=== PATIENT | male | born 1945 | race Caucasian/White ===

== ENCOUNTER 2016-07-08 23:04 | Emergency (ER) | payer MEDICARE, BC, OTHER ==
[~2016-07-08] VITALS: Ht 172.7 cm; Wt 91.4 kg
[~2016-07-08 23:04] MED LIST: ASPIRIN 32325 MG/TAB PO; ASPIRIN 81M81 MG/TA2 PO; BETAPACE 80MG80 MG PO; BYSTOLIC5 MG PO; CARDIZEM CD 18180 MG PO; CARTIA XT180 MG PO; COUMADIN 3MG3 MG/TAB PO; COUMADIN 5MG5 MG/TAB PO; COZAAR 50MG50 MG/TAB PO; COZAAR100 MG PO; COZAAR50 MG PO; DEMADEX 20MG20 M1 PO; DILTIAZEM180 MG PO; HCTZ 25MG TAB25 MG PO; HCTZ 25MG25 MG PO; HYDRODIURIL50 MG PO; LASIX 20MG TABL20 MG PO; LIPITOR 10MG10 MG PO; LIPITOR20 MG PO; LOPRESSOR 225 MG/TAB PO; METOPROLOL25 MG PO; NITRO-DUR0.4 MG/PAT TD; NITROSTAT0.4 MG/TAB SL; NORVASC 10MG10 MG PO; PLAVIX 75MG TAB75 MG PO
[2016-07-08 23:10] VITALS: TEMP 98.7
[2016-07-08] MEDS ORDERED: COZAAR 25MG25 MG/TAB PO (23:14)
[2016-07-09] MEDS ORDERED: PERCOCET 325 MG1 TA2 PO (00:36)
[2016-07-09] MEDS ORDERED: ULTRAM 50MG TAB50 MG PO (00:36)
[2016-07-09 00:54] VITALS: BP 104/67; PULSE 68
== END 2016-07-09 01:02 | disposition home or self-care (01) ==
LOC: COL.ER 23:04
DX: M79.675 Pain in left toe(s) (principal); M79.89 Other specified soft tissue disorders; W22.8XXA Striking against or struck by other objects, initial encounter; Y92.009 Unspecified place in unspecified non-institutional (private) residence as the place of occurrence of the external cause; E11.9 Type 2 diabetes mellitus without complications; Z79.01 Long term (current) use of anticoagulants; I48.91 Unspecified atrial fibrillation

== ENCOUNTER 2020-09-08 17:50 | Emergency (ER) | payer MEDICARE, OTHER, BC ==
[~2020-09-08] VITALS: Ht 175.3 cm; Wt 87.7 kg
[~2020-09-08 17:50] MED LIST changes: +COZAAR 25MG25 MG/TAB PO; +KLOR-CON SPRIN10 MEQ PO; +PERCOCET 325 MG1 TA2 PO; +ULTRAM 50MG TAB50 MG PO; +ZAROXOLYN5 MG PO
[2020-09-08 18:02] VITALS: TEMP 96.9
[2020-09-08 19:10] VITALS: BP 105/63; PULSE 67
== END 2020-09-08 19:10 | disposition home or self-care (01) ==
LOC: COL.ER 17:50
DX: T82.898A Other specified complication of vascular prosthetic devices, implants and grafts, initial encounter (principal); I25.10 Atherosclerotic heart disease of native coronary artery without angina pectoris; Z88.8 Allergy status to other drugs, medicaments and biological substances; Z79.82 Long term (current) use of aspirin

== ENCOUNTER 2020-11-22 19:53 | Emergency (ER) | payer MEDICARE, OTHER, BC ==
[~2020-11-22] VITALS: Ht 175.3 cm; Wt 81.8 kg
[2020-11-22 20:01] VITALS: TEMP 97
[2020-11-22] MEDS ORDERED: ZYVOX 600MG600 MG PO (20:27)
[2020-11-22] MEDS ORDERED: CORDARONE200 MG/TAB PO (20:27)
[2020-11-22] MEDS ORDERED: VANTIN 200200 MG/TAB PO (20:28)
[2020-11-22] MEDS ORDERED: BUMEX2 MG PO (20:28)
[2020-11-22] MEDS ORDERED: PLAVIX 75MG TAB75 MG PO (20:28)
[2020-11-22] MEDS ORDERED: IMDUR 30MG30 MG/TAB PO (20:29)
[2020-11-22] MEDS ORDERED: LOPRESSOR 225 MG/TAB PO ×2 (20:29→20:30)
[2020-11-22] MEDS ORDERED: KLOR-CON SPRIN10 MEQ PO (20:30)
[2020-11-22] MEDS ORDERED: INSPRA25 MG PO (20:30)
[2020-11-22] MEDS ORDERED: LIPITOR20 MG PO (20:31)
[2020-11-22] MEDS ORDERED: ELIQUIS 5MG PO (20:31)
[2020-11-22] MEDS ORDERED: ZYLOPRIM 100MG100 MG PO (20:31)
[2020-11-22 21:57] VITALS: BP 131/71; PULSE 79
== END 2020-11-22 21:57 | disposition home or self-care (01) ==
LOC: COL.ER 19:53
DX: Z45.2 Encounter for adjustment and management of vascular access device (principal); Z79.02 Long term (current) use of antithrombotics/antiplatelets; I50.9 Heart failure, unspecified; M10.9 Gout, unspecified; I48.91 Unspecified atrial fibrillation; I25.10 Atherosclerotic heart disease of native coronary artery without angina pectoris; E78.5 Hyperlipidemia, unspecified; E11.9 Type 2 diabetes mellitus without complications; Z95.9 Presence of cardiac and vascular implant and graft, unspecified; Z87.891 Personal history of nicotine dependence; Z79.01 Long term (current) use of anticoagulants; Z79.899 Other long term (current) drug therapy

== ENCOUNTER 2020-11-25 08:49 | Observation (INO) | payer MEDICARE, OTHER, BC ==
[~2020-11-25] VITALS: Ht 175.3 cm; Wt 81.8 kg
[~2020-11-25 08:49] MED LIST changes: +BUMEX2 MG PO; +CORDARONE200 MG/TAB PO; +ELIQUIS 5MG PO; +IMDUR 30MG30 MG/TAB PO; +INSPRA25 MG PO; +VANTIN 200200 MG/TAB PO; +ZYLOPRIM 100MG100 MG PO; +ZYVOX 600MG600 MG PO
[2020-11-25 10:57] LABS: HEMOGLOBIN 11.5 g/dl (13.5-18.0); MEAN CELL VOLUME 87 fl (80.0-100.0); MEAN CORPUSCULAR HEMOGLOBIN 28 pg (27.0-31.0); MEAN CORPUSCULAR HGB CONC 32 g/dl (33.0-37.0); MEAN PLATELET VOLUME 10.3 fl (7.4-10.4); PLATELET COUNT 134 K/mm3 (130-400); RED BLOOD COUNT 4.12 M/mm3 (4.20-5.60); REDCELL DISTRIBUTION WIDTH-CV 16.9 % (11.5-14.5)
[2020-11-25 10:59] LABS: HEMATOCRIT 35.8 % (42.0-52.0)
[2020-11-25 11:05] LABS: ALBUMIN 3.4 gm/dL (3.5-5.0); BILIRUBIN,TOTAL 1.7 mg/dL (0.0-1.0); CALCIUM 8.8 mg/dL (8.4-10.2); CREATININE, serum 1.97 (0.66-1.25); POTASSIUM 4.7 mmol/L (3.4-5.0); TOTAL PROTEIN 6.4 gm/dL (6.4-8.2)
[2020-11-25 11:24] LABS: TROPONIN-I 0.061 ng/mL (0.000-0.035)
[2020-11-25 11:29] LABS: LYMPHOCYTE 3 % (20.0-51.0); NEUTROPHILS 95 % (42.0-75.2); OVALOCYTES 1+; PLATELET ESTIMATE NORMAL (NORMAL)
[2020-11-25 11:33] LABS: HYPOCHROMIA 1+; POIKILOCYTOSIS 1+
[2020-11-25] MEDS ORDERED: MILRINONE (12:04)
--- NOTE | 2020-11-25 13:00 | NUR ---
Patient transferred up from the ED for CHF and injury from a fall. Upon initial assessment of the patient, lungs were clear to auscultation, skin was cool to the touch, pedal and radial pulses were +1 bilaterally, normal S1 and S2 sounds present, blood pressures soft 90's/ 50's, patient A&O. Patient has 2 large skin tears on his left elbow dressed with steri strips, ABD pads, gauze, and coban. Skin tears located on left foot and right dos santos are dressed with gauze. Patient has a stage 2 pressure ulcer located on sacral region and left buttock, dressed with mepilex. Patient C/O chronic pain in his lower back, states that he does not need any medication for it at this time. Milrinone running via home pump at 3.4 ml per/hour through PICC line. PICC line is located in RUU. Both lumens flush and have blood return. Dressing is partially soiled with dried blood. Patient is experiencing some diarrhea, GI panel collected. Patient denies any further pain, discomfort, or further needs at this time. Will continue to monitor. Call light in reach. Fall precautions in place.
[2020-11-25 14:28] VITALS: BP 94/60; PULSE 71; TEMP 96.4
[2020-11-25 15:20] VITALS: BP 125/78; PULSE 87; TEMP 97.7
[2020-11-25 17:44] VITALS: BP 98/55; PULSE 106; TEMP 97.4
[2020-11-25 19:20] VITALS: BP 95/50; PULSE 60; TEMP 97.5
[2020-11-25 21:07] LABS: INR 4.3 (0.8-3.0)
[2020-11-25 21:14] LABS: PROTHROMBIN TIME 48.1 SECONDS (9.7-12.8)
[2020-11-25 23:30] VITALS: BP 94/49; PULSE 66; TEMP 97.4
[2020-11-26] VITALS (7 sets, daily range): BP systolic 89–106; BP diastolic 44–60; PULSE 53–65; TEMP 96.8–98.4
[2020-11-26 08:09] LABS: CALCIUM 8.3 mg/dL (8.4-10.2); CREATININE, serum 1.99 (0.66-1.25)
[2020-11-26 08:15] LABS: INR 4.6 (0.8-3.0)
[2020-11-26 08:37] LABS: BASO # 0.1 (0.0-0.2); BASO % 0.6 % (0.0-2.0); EOS # 0.2 (0.0-0.7); EOS % 2.3 % (0-4.0); GRAN % 87.9 % (42.2-75.2); LYMPH # 0.2 (1.2-3.4); LYMPH % 2.8 % (20.0-51.0); MEAN CELL VOLUME 87 fl (80.0-100.0); MEAN CORPUSCULAR HGB CONC 32 g/dl (33.0-37.0); MEAN PLATELET VOLUME 11.6 fl (7.4-10.4); MONO # 0.5 (0.1-0.6); MONO % 5.9 % (1.7-9.3); PLATELET COUNT 111 K/mm3 (130-400); RED BLOOD COUNT 3.51 M/mm3 (4.20-5.60); REDCELL DISTRIBUTION WIDTH-CV 17.2 % (11.5-14.5)
[2020-11-26 08:38] LABS: HEMATOCRIT 30.6 % (42.0-52.0); HEMOGLOBIN 9.9 g/dl (13.5-18.0); MEAN CORPUSCULAR HEMOGLOBIN 28 pg (27.0-31.0)
--- NOTE | 2020-11-26 08:40 | NUR ---
Lab called critical PT of 52.0 and INR of 4.6. KEVIN Sainz notified.
[2020-11-26 13:34] LABS: COLLECTION METHOD CLEAN CATCH
[2020-11-26 13:44] LABS: MUCOUS Present /lpf; PH 5 (5-8); SQUAMOUS EPITHELIAL 0-2 /hpf; URINE APPEARANCE Clear; URINE BACTERIA None Seen /hpf; URINE BILIRUBIN Negative (NEGATIVE); URINE BLOOD Negative (NEGATIVE); URINE COLOR Yellow; URINE GLUCOSE Negative (NEGATIVE); URINE KETONE Negative (NEGATIVE); URINE LEUKOCYTE ESTERASE Negative (NEGATIVE); URINE NITRATE Negative (NEGATIVE); URINE PROTEIN(semi-quant) Negative (NEGATIVE); URINE UROBILINOGEN Negative (NEGATIVE); URINE WBC 0-2 /hpf
--- NOTE | 2020-11-26 15:30 | NUR ---
Alem met with the pt and his family bedside, Ismael (p# [phone], , son and daughter. The PCP is Danny Erickson and recieves his medications from [facility]. The pt is currently using caregivers for nursing and PT/OT because he had just been released from [facility] this week. The pt is being seen because he had a fall. The pt also has polyarticular DJD and Biventricular heart failure. The pt informed the Sw that he wants to go home. The family wanted to know the difference between hospice, palliative care and SNF. The Sw informed the family the difference. The famlily verbalized that they want him to go to SNF to gain strength again so that he can return home. The family was worried about his drip bag that he has to have on 23/12 and change every 10 days while he is admitted to the hospital and if SNF could handle that. The Sw gave the family a copy of all the SNF in the area where they live from Medicare.gov compare. Alem informed the family they should choose five and informed the Sw on duty tomorrow maureen so that the Sw could make a referral for them due to beds not being avaliable. No other needs stated at this time. Sw to await further recommendations and follow up as needed. D/c: SNF
--- NOTE | 2020-11-26 18:00 | NUR ---
Patient has had an ok day. 2 dose of imodium given for loose stools. They have since resolved. Patient C/O aching pain in his sacral area, patient repositioned Q2. Does not want any medication at this time. Family has been at the bedside a majority of the day. SW met with family regarding placement. Patient denies any futher pain, discomfort, or futher needs at this time. Tristin continue to monitor. Call light in reach. Fall precautions in place.
[2020-11-27] VITALS (8 sets, daily range): BP systolic 86–107; BP diastolic 40–62; PULSE 60–75; TEMP 97.4–97.6
--- NOTE | 2020-11-27 04:00 | NUR ---
Gibran left elbow is bleeding bad this morning. I changed the dressing with non adherent, gauze ABD pad and coban. He had 2x of watery bowel movement and I gave him Immodium once before midnight. Otherwise he complains of pain in coccyx area and we put pillows in his buttocks bilaterally so it debbie elevate his butt a little bit. Continue to monitor.
[2020-11-27 06:38] LABS: IRON,SERUM 222 ug/dL (35-150)
[2020-11-27 06:41] LABS: INR 2.7 (0.8-3.0); PROTHROMBIN TIME 30.1 SECONDS (9.7-12.8)
[2020-11-27 06:43] LABS: CALCIUM 8.3 mg/dL (8.4-10.2); CREATININE, serum 1.91 (0.66-1.25); POTASSIUM 3.5 mmol/L (3.4-5.0)
[2020-11-27 06:47] LABS: TOTAL IRON BINDING CAPACITY 282 ug/dL (261-462)
--- NOTE | 2020-11-27 07:01 | NUR ---
Patient awake lying in bed at this time. Denies any pain, SOA, discomfort, or futher needs at this time. Will continue to monitor. Call light in reach. Fall precautions in place.
--- NOTE | 2020-11-27 11:47 | NUR ---
Met with patient and his and son, Gibran. Family is looking at SNF in [place], [place] for rehab services. Pt states, "I know I will in 3 days if they take away the medicine in my pump". "I am not ready to give up now", "I want to try to get stronger and be able to spend time with my family". Pt is also reporting that he is not sure he will be able to come home. He talks a lot about his difficulty swallowing and reports that Dr Silverio was going to order some help with his swallowing to try to figure out what is going on. His sense of taste is also very poor--things taste terrible! Finances are also a concern for this family if LTC is also needed. Hospice care sounds as though it may be in his future but not something that family will consider until all other measures have been tried.
--- NOTE | 2020-11-27 11:52 | NUR ---
First visit from the transit specialist. No needs right now.
--- NOTE | 2020-11-27 16:43 | NUR ---
Supervisor Publications attended clinical rounds with the team. The patient's son, Edgardo and , Ismael present. Palliative Care consulted. Following rounds, SW met with the patient, Edgardo and Ismael to discuss discharge. The patient states he wants to continue fighting and not ready for hospice. He was interested in sending referrals to the [facility]. After reviewing Medicare.gov's choices are 1) [facility] 2) [facility] 3) [facility] and 4) [facility]. Referrals sent. KARRIE contacted facilities regarding referral. *Discharge disposition: SNF. Referrals sent to the [facility]. Awaiting screens*
[2020-11-28 03:25] VITALS: BP 102/53; PULSE 61; TEMP 97.7
[2020-11-28 09:12] VITALS: BP 106/60; PULSE 56; TEMP 98
--- NOTE | 2020-11-28 10:05 | NUR ---
Pt awake and alert upon entry, family in room with Pt, some C/O back pain. Cleaned Pt and bed change provided, repositioned for comfort. External catheter replaced. Shift assessments complet, left Pt call light in reach, bed in lowest position.
[2020-11-28 12:30] VITALS: BP 95/51; PULSE 65; TEMP 98.1
--- NOTE | 2020-11-28 13:21 | NUR ---
Human Resources Executive Assistant faxed clinical update to Oneyda with [facility].
--- NOTE | 2020-11-28 13:22 | NUR ---
The patient received denials for SNF from [facility] due to them being full and not having a discharge for three weeks and from [facility] due to not being able to meet patient needs. SW contacted the patient's son, Edgardo to discuss denials and to discuss getting more choices. Edgardo will discuss more choices with his family. He was agreeable to sending referral to [facility] in [place]. Referral sent and facility contacted. SW contacted TAY Melara with [facility]. They will review the referral then inform SW of decision. *Discharge disposition: SNF. Referral sent to [facility] and to [facility] in [place]. Awaiting screens*
[2020-11-28 16:47] VITALS: BP 102/64; PULSE 70; TEMP 97.5
--- NOTE | 2020-11-28 17:24 | NUR ---
[facility] declined they patient due to they have too many admissions at this time. Still awaiting [facility], left several message with a couple of admissions liasons. Investigations Manager discussed denials with the patient's son, Edgardo. KARRIE discussed sending many referrals in the area, he was in agreeance. KARRIE faxed referrals to [facility], [facility], [facility], [facility], [facility], [facility], [facility], and [facility]. *Discharge disposition at this time: SNF in [facility]. Referrals sent. Awaiting screens*
[2020-11-28 20:15] VITALS: BP 99/53; PULSE 61; TEMP 98.1
[2020-11-28 23:51] VITALS: BP 103/51; PULSE 66; TEMP 97.7
--- NOTE | 2020-11-29 01:12 | NUR ---
Resting quietly, no c/o pain at this time, telemetry in use, call barker w/i reach, VS stable, ST to L elbow redressed due to bleeding through, patient tolerated well, will continue to monitor.
[2020-11-29 04:03] VITALS: BP 105/56; PULSE 72; TEMP 97.4
[2020-11-29 06:44] LABS: MEAN CELL VOLUME 85 fl (80.0-100.0); MEAN CORPUSCULAR HEMOGLOBIN 28 pg (27.0-31.0); MEAN CORPUSCULAR HGB CONC 33 g/dl (33.0-37.0); MEAN PLATELET VOLUME 11.4 fl (7.4-10.4); PLATELET COUNT 70 K/mm3 (130-400); RED BLOOD COUNT 3.55 M/mm3 (4.20-5.60)
[2020-11-29 06:45] LABS: CALCIUM 8.8 mg/dL (8.4-10.2); CREATININE, serum 1.48 (0.66-1.25); POTASSIUM 3.9 mmol/L (3.4-5.0)
[2020-11-29 06:57] LABS: INR 1.9 (0.8-3.0); PROTHROMBIN TIME 20.8 SECONDS (9.7-12.8)
[2020-11-29 07:15] LABS: HEMATOCRIT 30.3 % (42.0-52.0)
[2020-11-29 08:18] VITALS: BP 103/57; PULSE 71; TEMP 97.7
--- NOTE | 2020-11-29 10:45 | NUR ---
Shift assessment complete. Pt lying in bed. New PICC placed to right upper arm, milrinone drip running. Heart rhythm afib per telemetry, rate controlled. x2 dime-sized skin tears to left elbow, dressing changed. Small skin tears to left dos santos and top of right foot. x3 stage 2 pressure ulcers to bottom, pillows under bilateral hips. Denies needs at this time. Continuing to monitor.
--- NOTE | 2020-11-29 10:54 | NUR ---
After a peripheral IV site was secured pt infusion of Milrinone was stopped per his pump as was alarming low volume and a new bag from our pharmacy was started to match the infusion dosage. PICC line is to be replaced by MURALI as is not currently in [facility]. PT and son have talked with MURALI Horner, about this situation. We have not found a facility that will accept pt at this time and I have spoken with son about this, facilities locally will accept on hospice but not for SNF care. Support provided to pt and son.
[2020-11-29 12:49] VITALS: BP 109/57; PULSE 73; TEMP 97.6
--- NOTE | 2020-11-29 13:06 | NUR ---
Initial visit; Membership Advisor stopped in patient's room earlier and offered God's blessings, and checking to see if he wanted to see the Membership Advisor he had seen yesterday since had received a call from a that they thought patient wanted to see a Membership Advisor. I later spoke with patient's son letting him know that Priests are available to patient's upon request.
[2020-11-29 16:07] VITALS: BP 96/55; PULSE 74; TEMP 97.6
--- NOTE | 2020-11-29 17:01 | NUR ---
After several denials for SNF, [facility] accepted. KARRIE refaxed referral to [facility], per family request. Carmen with [facility] finally contacted this SW, They will review referral. As of now, the patient to tentatively discharge tomorrow, 11/30 to [facility]. The patient's son also inquired about hospice and KARRIE provided information regarding hospice in [facility], and [place]. KARRIE was contacted by the patient's daughter regarding placement. She was against the patient going to [facility]. KARRIE addressed the denials and discussed if they do not go to [facility] the patient will go home with home health on 11/30. The patient's daughter stated that going home is no an option. KARRIE reiterated that the only accepting facility at this time is [facility] and he will discharge on 11/30. KARRIE also informed the patient's daughter that he has been obs status and should have discharged day two. The patient's daughter inquired about transferring once the patient was at [facility]. KARRIE informed the patient's daughter that she would have to contact the [facility] for a transfer if that is what they decided later. No other needs at this time.
[2020-11-29 20:18] VITALS: BP 102/53; PULSE 83; TEMP 97.3
[2020-11-30 00:08] VITALS: BP 111/56; PULSE 65; TEMP 97.8
[2020-11-30 05:20] VITALS: BP 114/55; PULSE 70; TEMP 97.9
--- NOTE | 2020-11-30 05:43 | NUR ---
Resting quietly, no c/o at this time, updated on plan of care, verbalized understanding.
[2020-11-30 08:20] VITALS: BP 117/59; PULSE 73; TEMP 97.6
--- NOTE | 2020-11-30 08:54 | NUR ---
Shift assessment complete. Lying in bed, and son at bedside. Denies pain or other concerns. X3 dime-size stage 2 pressure ulcers to bottom, x2 skin tears to left arm w/dressing CDI, skin tear to right foot and left dos santos. Right upper arm PICC flushes well w/good blood return, no s/s complication noted. Denies needs. Continuing to monitor.
[2020-11-30] MEDS ORDERED: LASIX 40MG TABL40 MG PO (09:35)
[2020-11-30] MEDS ORDERED: COREG 3.123.125 MG/T PO (09:37)
[2020-11-30 10:34] VITALS: BP 117/59; PULSE 73; TEMP 97.6
--- NOTE | 2020-11-30 10:43 | NUR ---
I spoke with Ismael Faria, , outside of the room this morning. She reports that she is very aware that Gibran's time is quite limited but feels she is the only one in the family who has recognized that. She does not expect Gibran to get stronger and feels that [facility] is a good location for him. She can easily visit him there when allowed and yet can rest at home when she needs to. I did talk with her about using hospice services when they are ready to do so, and she is supportive of this idea but states she will wait until Gibran himself can accept his situation, until then she will follow his wishes.
--- NOTE | 2020-11-30 11:01 | NUR ---
The patient to discharge today, 11/30 to [facility]. The patient to be transported at 11:00 am. The patient and team were in agreeance. The patient's son, Edgardo was inagreeance too. The patient's home health nurse, Carin met with the patient to take care of his milirnone pump at 10:00 am. Carmen from [facility] contacted this SW regarding referrals and they declined due to they have many patient with high acuity in their facility. KARRIE informed the patient's son Edgardo, he understood. KARRIE sent discharge orders. KARRIE faxed discharge orders to Ricarda with [facility]. They are provided the patient with his milirnone. There are no additional needs.
--- NOTE | 2020-11-30 11:17 | NUR ---
Discharge packet given to [facility] transport. Pt assisted in getting dressed and into wheelchair. Escorted out w/all belongings. Report called to nurse receiving patient.
== END 2020-11-30 11:20 | disposition home or self-care (01) ==
LOC: COL.ER 08:49 → MEDICAL 12:05
PROVIDERS: Emergency Medicine; Physician Assistant; Student in an Organized Health Care Education/Training Program; ADMIT Internal Medicine
DX: I13.0 Hypertensive heart and chronic kidney disease with heart failure and stage 1 through stage 4 chronic kidney disease, or unspecified chronic kidney disease (principal); I50.42 Chronic combined systolic (congestive) and diastolic (congestive) heart failure; I48.20 Chronic atrial fibrillation, unspecified; I27.20 Pulmonary hypertension, unspecified; E78.5 Hyperlipidemia, unspecified; E11.22 Type 2 diabetes mellitus with diabetic chronic kidney disease; M10.9 Gout, unspecified; G47.33 Obstructive sleep apnea (adult) (pediatric); N18.4 Chronic kidney disease, stage 4 (severe); Z79.899 Other long term (current) drug therapy; Z79.891 Long term (current) use of opiate analgesic
CPT/HCPCS: 99231-AI; 99233-AI; C1751; C1892; G0378; J2260; J7040

== ENCOUNTER 2021-01-10 18:07 | Inpatient (IN) | payer MEDICARE, OTHER, BC ==
[~2021-01-10] VITALS: Ht 175.3 cm; Wt 85.0 kg
[~2021-01-10 18:07] MED LIST changes: +COREG 3.123.125 MG/T PO; +LASIX 40MG TABL40 MG PO; +MILRINONE
[2021-01-10 19:10] LABS: HEMOGLOBIN 10.3 g/dl (13.5-18.0); MEAN CELL VOLUME 87 fl (80.0-100.0); MEAN CORPUSCULAR HEMOGLOBIN 26 pg (27.0-31.0); MEAN CORPUSCULAR HGB CONC 30 g/dl (33.0-37.0); PLATELET COUNT 245 K/mm3 (130-400); RED BLOOD COUNT 3.96 M/mm3 (4.20-5.60); REDCELL DISTRIBUTION WIDTH-CV 18.8 % (11.5-14.5)
[2021-01-10 19:11] LABS: HEMATOCRIT 34.4 % (42.0-52.0)
[2021-01-10 19:18] LABS: ALBUMIN 3.1 gm/dL (3.5-5.0); BILIRUBIN,TOTAL 1.2 mg/dL (0.0-1.0); CALCIUM 8.2 mg/dL (8.4-10.2); CREATININE, serum 2.36 (0.66-1.25)
[2021-01-10 19:42] LABS: TROPONIN-I 0.104 ng/mL (0.000-0.035)
[2021-01-10 20:22] LABS: LYMPHOCYTE 4 % (20.0-51.0); NEUTROPHILS 95 % (42.0-75.2)
[2021-01-10 20:23] LABS: ANISOCYTOSIS 2+; HYPOCHROMIA 3+
[2021-01-10 20:24] LABS: BURR CELLS 1+; OVALOCYTES 1+; TARGET CELLS 1+
[2021-01-10 20:25] LABS: SCHISTOCYTES 1+
[2021-01-10 20:26] LABS: POIKILOCYTOSIS 3+; TEAR DROP CELLS 1+
[2021-01-10 20:28] LABS: PLATELET ESTIMATE NORMAL (NORMAL)
[2021-01-10 21:15] LABS: CALCIUM 9.1 mg/dL (8.4-10.2); CREATININE, serum 2.37 (0.66-1.25); POTASSIUM 5.7 mmol/L (3.4-5.0)
[2021-01-10 22:03] LABS: COLLECTION METHOD CLEAN CATCH
[2021-01-10 22:09] LABS: MUCOUS Present /lpf; PH 5 (5-8); SQUAMOUS EPITHELIAL 0-2 /hpf; URINE APPEARANCE Hazy; URINE BACTERIA Rare /hpf; URINE BILIRUBIN Negative (NEGATIVE); URINE BLOOD Negative (NEGATIVE); URINE COLOR Yellow; URINE GLUCOSE Negative (NEGATIVE); URINE KETONE Negative (NEGATIVE); URINE LEUKOCYTE ESTERASE Negative (NEGATIVE); URINE NITRATE Negative (NEGATIVE); URINE PROTEIN(semi-quant) Negative (NEGATIVE); URINE RBC 0-2 /hpf; URINE UROBILINOGEN Negative (NEGATIVE)
[2021-01-11 01:09] LABS: MAGNESIUM 2.2 mg/dL (1.6-2.3); PHOSPHOROUS 4.2 mg/dL (2.5-4.5)
[2021-01-11 01:19] LABS: TSH w REFLEX 2.476 uIU/mL (0.350-4.940)
[2021-01-11] MEDS ORDERED: FLONASEALLERGY NS (01:24)
[2021-01-11] MEDS ORDERED: MILK OF MA400 MG/52 PO (01:25)
[2021-01-11] MEDS ORDERED: ULTRAM 50MG TAB50 MG PO (01:25)
[2021-01-11] MEDS ORDERED: ONE-A-DAY ESSE1 EACH PO (01:25)
[2021-01-11] MEDS ORDERED: REMERON 15M15 MG/TA1 PO (01:25)
[2021-01-11 01:38] VITALS: BP 82/48; PULSE 86; TEMP 97
--- NOTE | 2021-01-11 02:11 | NUR ---
Patient is a newly admit from ER, alert and oriented. In so much pain in movement. skin in lower legs are weeping. HE fell 3days ago as what he claimed and hit his head. He has contusion in his head. generalized brusing. Has scabbing in his rightforearm where his PICC line is located. He came up with dubutamine drip at 6.7 in his purple PICC, Milrinone at 0.5mcg in his red PICC he has his own pump for that from home. He said he has that since July of this year that was refilled on 01/10/2021. He is on lasix drip in his peripheral IV at 11ml/hr. He has skin tear with steri strips in his left hand.Abrasions in his left elbow wrap with david band. Stage III ulcer in his sacrum area open to air. Bilaretal knees abrasions Bilaretal ankle ulcer open to air. Left foot 2nd and 5th digit ulcer. Left bottom of the foot ulcer. His right big toe is necrotic, 4th digit foot ulcer. Bilateral legs is red and weeping. He said he verbalized that he wanted to but no intention to hurt himself. refused to be turn. Pain meds PRN tramadol given. Seizure and fall precautions in placed. Bed alarm is on and call light is within reach. Continue to monitor.
[2021-01-11 02:33] LABS: CALCIUM 8.7 mg/dL (8.4-10.2); CREATININE, serum 2.41 (0.66-1.25)
[2021-01-11 03:06] LABS: POTASSIUM 5.9 mmol/L (3.4-5.0)
[2021-01-11 03:58] VITALS: BP 85/46; PULSE 59; TEMP 97.9
[2021-01-11 04:37] LABS: CALCIUM 8.6 mg/dL (8.4-10.2); CREATININE, serum 2.47 (0.66-1.25); POTASSIUM 5.5 mmol/L (3.4-5.0)
--- NOTE | 2021-01-11 07:00 | NUR ---
Report from DARA Harry. Pt resting in bed, lab in room at this time. IV infusions per orders. Call light in reach. Bed alarm on.
[2021-01-11 08:39] VITALS: BP 75/37; PULSE 54
[2021-01-11 09:03] LABS: CALCIUM 8.4 mg/dL (8.4-10.2); CREATININE, serum 2.44 (0.66-1.25); POTASSIUM 5.1 mmol/L (3.4-5.0)
[2021-01-11 09:25] LABS: TROPONIN-I 0.113 ng/mL (0.000-0.035)
--- NOTE | 2021-01-11 09:53 | NUR ---
Initial visit; Patient thanked Infusion Nurse for looking in on him andoffering God's blessings though declined prayer.
--- NOTE | 2021-01-11 10:30 | NUR ---
Millrinone infusion moved from red port where no cap currently in place and now infusing to Y-site of Dobutamine infusion through purple port of PICC line. Cap placed on red port of PICC line and Lasix infusion now connected to that port. Drip rates changed per orders. Pt refusing oral medication at this time d/t considering options between treatment and comfort care. Pt anxious about dying d/t some life regrets, awaiting conversation with a relay checker before making decisions. No further needs reported. Call light in reach.
--- NOTE | 2021-01-11 10:37 | NUR ---
I have been talking with nely and with Dr Hou this morning about the patient and his wishes. He has reported that he does not want to go to [facility] ICU when offered by Dr Hou. He talked about wanting to go to sleep and to quickly. Iqra RN, his primary nurse, and I went in to talk with him about code status as he is still wanting compressions and ACLS protocal but NO INTUBATION. We talked about his additional med requirements, that "coding him" would probably not allow him to live longer as his chances of survival of a code are very poor. He reports that he is afraid of dying. He spoke with his , Ismael, by phone and requested to talk with a auto service mechanic. He is tearful, reports he and his have been 60+ years and it is hard to think of that ending. He states he has a strong edgar but is not a "restorationism goer". We have requested that a auto service mechanic come to see him and will await that visit. He is considering changing his code status but would like to talk with the auto service mechanic first.
[2021-01-11 13:00] VITALS: BP 94/29; PULSE 70; TEMP 97.6
--- NOTE | 2021-01-11 13:14 | NUR ---
A palliative care consult was ordered. SW staffed with Palliative Care Nurse, Carmen. The patient is considering hospice. If him and his do pursue hospice, they may be interested in [facility] or hospice at [facility]. SW contacted and faxed a referral to Jyoti at [facility]. KARRIE contacted and faxed a referral to Grisel at [facility]. Grisel reports that they have had the patient in the past and would be able to accept, whether it be for hospice or SNF. SW to continue to follow.
--- NOTE | 2021-01-11 13:45 | NUR ---
Patient admitted with PICC. Patient is nonverbal. Opens eyes and responds to verbal stimuli. PICC intact patient's right upper arm. There is no data on PICC dressing. Patient's right upper PICC dressing change done with sterile technique. Insertion site cleansed with ChloraPrep x1, chlorhexidine impregnated disc applied, skin prep, and Tegaderm applied. Patient has several skin tears noted at upper edge of PICC dressing. Adaptic and 2 x 2 applied over existing skin tear. Patient's arms are bruised bilaterally.IV site in right AC area removed. Pressure applied. 2 x 2 and tape applied.PICC wrapped with an Johnny wrap to protect catheter.
--- NOTE | 2021-01-11 14:31 | NUR ---
I spoke with pt's , Ismael, and then later his daughter called to check on him. She seemed quite surprised that we would think he is at end of life. I explained to her that he was very sleepy and lethargic. His blood pressures have been running very low even with dobutamine support being provided and even increased. We talked about his not wanting to return to [facility] ICU. I talked with both about hospice care. Ismael does not feel that she can bring him home and care for him. We talked about [facility] vs [facility] that could provide hospice care. We talked about code status and that he had requested to talk with a bridal stylist sales consultant which he did. Pt has been very sleepy this afternoon and awakens only for short periods before dozing off again. We are waiting on family to make a decision for where we go from here. Earlier this morning pt was leaning toward hospice care.
--- NOTE | 2021-01-11 15:18 | NUR ---
Pt reported to Iqra DIAMOND and Myself that he wished to be a DNR code status now. Dr Romano was notified and she verified with pt also. We are waiting on and son to arrive.
[2021-01-11 15:20] VITALS: BP 99/42; PULSE 109
--- NOTE | 2021-01-11 16:00 | NUR ---
Pt cleaned with assistance from GRIPPER MACHINE OPERATOR's and dressing changed to left elow skin tear and new dressing to coccyx.
--- NOTE | 2021-01-11 19:34 | NUR ---
Bedside shift report received from DARA Escalona. Patient currently awake in bed with family at bedside. Lasix, dobutamine, and molrinon gtt infusing into right upper arm PICC. Patient is alert and oriented and has no complaints of pain at this time. Comfort measures provided and call light in reach.
--- NOTE | 2021-01-11 20:00 | NUR ---
Patient is lying in bed with family present. He is alert and oriented x4, He reports pain in both lower extremities. He denies nausea or vomiting. Refused medications. Asked for warm blankets. PICC site with blood. PICC intact, blood from laceration in skin. Bandage was changed. Tele in place, catheter cannon with dark brown urine. Patient has multiple bruises in the body. Lacerations in right hand. Currently with lasix and dobutanin running. Continue monitoring. No further needs right now. Call light within reach.
[2021-01-11 21:00] LABS: CALCIUM 8.3 mg/dL (8.4-10.2); CREATININE, serum 2.4 (0.66-1.25); POTASSIUM 4.2 mmol/L (3.4-5.0)
[2021-01-12 04:16] VITALS: BP 89/41; PULSE 86; TEMP 97.9
--- NOTE | 2021-01-12 06:50 | NUR ---
Patient has been stable overnight. He refused night meds or pain meds. His stayed with him overnight. He continues with lasix and dobutamin iv infusion. He is been alert and oriented x 4, and had some rest. Shift report will be given to the day nurse.
[2021-01-12 07:26] VITALS: BP 105/51; PULSE 89; TEMP 98.3
[2021-01-12 07:29] LABS: PATHOLOGY DIFF REVIEW OK
[2021-01-12 07:54] LABS: MEAN CELL VOLUME 83 fl (80.0-100.0); MEAN CORPUSCULAR HGB CONC 31 g/dl (33.0-37.0); PLATELET COUNT 221 K/mm3 (130-400); RED BLOOD COUNT 3.28 M/mm3 (4.20-5.60); REDCELL DISTRIBUTION WIDTH-CV 18.8 % (11.5-14.5)
[2021-01-12 07:56] LABS: HEMATOCRIT 27.1 % (42.0-52.0); HEMOGLOBIN 8.5 g/dl (13.5-18.0); MEAN CORPUSCULAR HEMOGLOBIN 26 pg (27.0-31.0)
[2021-01-12 08:03] LABS: CALCIUM 7.8 mg/dL (8.4-10.2); CREATININE, serum 2.25 (0.66-1.25); POTASSIUM 3.6 mmol/L (3.4-5.0)
[2021-01-12 08:50] LABS: BAND 1 % (0-10); NEUTROPHILS 97 % (42.0-75.2)
[2021-01-12 08:51] LABS: ANISOCYTOSIS 1+; HYPOCHROMIA 1+; OVALOCYTES 2+; PLATELET ESTIMATE NORMAL (NORMAL); TEAR DROP CELLS 1+
--- NOTE | 2021-01-12 11:01 | NUR ---
Family is wanting to go to a hospice house that will accept the milrinone pump for ongoing use. I have spoken with [facility] and they will not accept, [facility] is at capacity and will not accept any new patient for at least another week. [facility] will consider and I have faxed them pt information. [facility] will consider and I have faxed them pt information. [facility] is not taking patient's on milrinone gtt. [facility] is taking it to their application administrator to see if would even consider. I have been speaking with daughter Shannon per Ismael's request. Shannon states that her father will not return to [facility] as they will not let Ismael be with him. Daughter Shannon did not see that going home was an option to be considered as Ismael cannot care for him.
[2021-01-12 11:16] VITALS: BP 97/49; PULSE 92
--- NOTE | 2021-01-12 14:23 | NUR ---
Follow-up visit; contacted a Lsat Instructor for patient again today. Patient's thanked .
--- NOTE | 2021-01-12 14:26 | NUR ---
This morning Shannon, daughter, advised that it was the plan to go to a Hospice House that would allow his milrinone drip gtt and probably in the [place] area. All hospice houses declined taking him with the milrinone running. I rounded with Lisa BROWN and it was then that the patient stated he wanted all the medication off and he just wanted to ! After discussion, he states he wants to go home and be allowed to . Family had some contact with [facility] over the last two weeks and they are willing to take patient as a home hospice client without the melrinone. Referral was faxed to [facility] and they are sending a respresentative to talk with the patient and his family here this afternoon with admission tomorrow. Pt has also requested to talk with a umbrella mender again and Rula dupont was able to contact Father Trey to come talk with him. Family seems calmer now.
--- NOTE | 2021-01-12 14:46 | NUR ---
KARRIE staffed with palliative care nurse, Carmen. The patient and his family are leaning towards hospice at a facility in [place], due to it being closer to family, but they are wanting to continue the Milirinone drip. Carmen reached out to the hospice house in [place] and hospice facilities in the [place] area to inquire if they would take a patient on the drip. The [facility] cannot and most of the facilities Carmen reached out to cannot. KARRIE met with the patient and his , Ismael, to introduce oneself and to follow up on their wishes. The patient reports that he is not wanting to continue the drip anymore. He states that it will prolong his and if he could snap his fingers to , he would. The patient's son and [id number] then entered the room. KARRIE informed them of what the patient expressed. The patient expressed his wishes again. The patient's family acknowleged his wishes. KARRIE updated Carmen. Reagan then spoke to the patient's son. The son and his sister and deciding on a hospice facility in [place] or the hospice house in [place]. Carmen then notified KARRIE that the patient is now wanting to return home with hospice and that the patient's family has been in contact with [facility] out of [place] for a couple weeks now. They are wanting to pursue home hospice now with [facility]. A referral was faxed to [facility]. A sales representative education courses from [facility] is coming to meet with the patient and his family today. The patient and his family would like to resume the drip and meds during the ambulance ride home and then will stop them once he is in the home. KARRIE and Carmen updated the clinical team on the above. [facility]: #[phone], fax#[phone]
[2021-01-12 15:49] VITALS: BP 92/58; PULSE 89; TEMP 97.7
[2021-01-12 16:30] LABS: CALCIUM 7.7 mg/dL (8.4-10.2); CREATININE, serum 2.11 (0.66-1.25); POTASSIUM 3.2 mmol/L (3.4-5.0)
[2021-01-12 19:20] VITALS: BP 90/70; PULSE 80; TEMP 97.7
--- NOTE | 2021-01-12 20:00 | NUR ---
Patient is lying in bed with at bedside. He is alert and oriented x 3, no complains of nausea or vomiting. Continues with the pain bilaterally lower extremities. Refused medications and any other care like changing lines or gown. Continue monitoring. No further needs at this time. Call light within reach.
[2021-01-12 23:28] VITALS: BP 95/42; PULSE 85; TEMP 97.2
[2021-01-13 03:33] VITALS: BP 92/48; PULSE 78; TEMP 97.7
--- NOTE | 2021-01-13 06:53 | NUR ---
Patient has been resting in bed all night. He has just asked for water and warm blankets. stayed with him. No further needs at this time. Call light within reach.
--- NOTE | 2021-01-13 09:08 | NUR ---
Pt awake upon entry. Refused morning medications per request from Pt / family. [facility] assessment complete, left Pt call light in reach, bed in lowest position.
--- NOTE | 2021-01-13 14:30 | NUR ---
Pt transferred to home hospice via EMS.
--- NOTE | 2021-01-13 14:40 | NUR ---
KARRIE informed that patient would transfering to his home in [facility] on this day with [facility] services and will need to be transported EMS. KARRIE met with family to confirm information, called [facility] staff to confirm, and completed EMS documentation. DC documenation faxed to EMS, and [facility]. KARRIE confirmed pick and shovel man time from EMS 2pm on this day. KARRIE met with family to inform of information as well as [facility] education administrator nurse Cihquita at [phone] who confirmed that she would be obtaining supplies and heading to the home at the time of patient arrival. Nothing further.
== END 2021-01-13 14:31 | disposition hospice, home (50) | DRG 291 ==
LOC: COL.ER 18:07 → MEDICAL 21:13
PROVIDERS: Emergency Medicine; Nurse Practitioner Family; Physician Assistant; ADMIT Internal Medicine
DX: I13.0 Hypertensive heart and chronic kidney disease with heart failure and stage 1 through stage 4 chronic kidney disease, or unspecified chronic kidney disease (principal); L89.314 Pressure ulcer of right buttock, stage 4; L89.154 Pressure ulcer of sacral region, stage 4; I50.43 Acute on chronic combined systolic (congestive) and diastolic (congestive) heart failure; N17.9 Acute kidney failure, unspecified; E87.2 Acidosis; N18.4 Chronic kidney disease, stage 4 (severe); I48.21 Permanent atrial fibrillation; Z66 Do not resuscitate; I42.9 Cardiomyopathy, unspecified; E87.5 Hyperkalemia; I50.82 Biventricular heart failure; E78.5 Hyperlipidemia, unspecified; E87.1 Hypo-osmolality and hyponatremia; I25.10 Atherosclerotic heart disease of native coronary artery without angina pectoris; R79.89 Other specified abnormal findings of blood chemistry; G47.33 Obstructive sleep apnea (adult) (pediatric); I27.20 Pulmonary hypertension, unspecified; E11.22 Type 2 diabetes mellitus with diabetic chronic kidney disease; D63.1 Anemia in chronic kidney disease; G89.29 Other chronic pain; L89.529 Pressure ulcer of left ankle, unspecified stage; L89.899 Pressure ulcer of other site, unspecified stage; D69.6 Thrombocytopenia, unspecified; E87.6 Hypokalemia; T50.1X5A Adverse effect of loop [high-ceiling] diuretics, initial encounter; I95.9 Hypotension, unspecified; I49.3 Ventricular premature depolarization; M54.5 Low back pain; R19.7 Diarrhea, unspecified; M19.90 Unspecified osteoarthritis, unspecified site; K21.9 Gastro-esophageal reflux disease without esophagitis; I08.0 Rheumatic disorders of both mitral and aortic valves; M10.9 Gout, unspecified; Z79.01 Long term (current) use of anticoagulants; Z79.51 Long term (current) use of inhaled steroids; Z95.5 Presence of coronary angioplasty implant and graft; Z79.02 Long term (current) use of antithrombotics/antiplatelets; Z87.891 Personal history of nicotine dependence; Z82.49 Family history of ischemic heart disease and other diseases of the circulatory system; Z86.73 Personal history of transient ischemic attack (TIA), and cerebral infarction without residual deficits
CPT/HCPCS: 99223-AI; 99232-AI; 99233-AI; 99239; A4314; J1250; J1815; J1940; J2270; J2543; J7030